=== PATIENT | female | born 1980 | race Caucasian/White ===

== ENCOUNTER → 2016-10-21 | Outpatient (CLI) | payer OTHER ==
--- NOTE | 2016-10-22 08:06 | US ---
EXAMINATION TYPE: US axilla extremity LT DATE OF EXAM: 10/21/2016 COMPARISON: NONE CLINICAL HISTORY: R22.2 Swelling, mass. Palpable in left axilla that comes and goes, can be tender 0.5cm possible lymph node seen at area of complaint versus normal axilla tissue IMPRESSION: No significant abnormalities evident. Normal-appearing lymph node present within the lef t axilla. Follow-up clinically.
== END | disposition home or self-care (01) ==
LOC: RADUSWWP 16:09
PROVIDERS: ATTEND Family Medicine
DX: R22.2 Localized swelling, mass and lump, trunk (principal)

== ENCOUNTER 2022-10-23 21:40 | Emergency (ER) | payer BC, OTHER ==
[2022-10-23 22:06] VITALS: RESP 18; TEMP 99
[2022-10-23] MEDS ORDERED: FAMOTIDINE 20 MG/2 ML VIAL IV STA (22:45)
[2022-10-23] MEDS ORDERED: ASPIRIN 81 MG PO STA (22:45)
[2022-10-23 23:34] LABS: ALT 25 U/L (4-34); AST 21 U/L (14-36); African American GFR (CKD) >90 (>60 ml/min/1.73 sqM); Albumin 4.1 g/dL (3.5-5.0); Alkaline Phosphatase 85 U/L (38-126); Anion Gap 8 mmol/L; Blood Urea Nitrogen 17 mg/dL (7-17); Calcium 9.4 mg/dL (8.4-10.2); Carbon Dioxide 29 mmol/L (22-30); Chloride 102 mmol/L (98-107); Glucose 78 mg/dL (74-99); Non-African American GFR(CKD) >90 (>60 ml/min/1.73 sqM); Potassium 3.6 mmol/L (3.5-5.1); Sodium 139 mmol/L (137-145); Total Bilirubin 0.4 mg/dL (0.2-1.3); Total Protein 7.4 g/dL (6.3-8.2)
[2022-10-23 23:39] LABS: Basophils # (A) 0.1 k/uL (0-0.2); Basophils % (A) 1 %; Eosinophils # (A) 0.2 k/uL (0-0.7); Eosinophils % (A) 2 %; HCT 37.1 % (34.0-46.0); HGB 12.7 gm/dL (11.4-16.0); Lymphocytes % (A) 24 %; MCH 29.2 pg (25.0-35.0); MCHC 34.2 g/dL (31.0-37.0); MCV 85.3 fL (80.0-100.0); Mean Platelet Volume 6.9; Monocytes # (A) 0.5 k/uL (0-1.0); Monocytes % (A) 5 %; Neutrophils # (A) 5.7 k/uL (1.3-7.7); Neutrophils % (A) 66 %; Platelet Count 295 k/uL (150-450); RBC 4.34 m/uL (3.80-5.40); RDW 13.4 % (11.5-15.5); WBC 8.6 k/uL (3.8-10.6)
[2022-10-23 23:48] LABS: INR 0.9 (<1.2); Partial Thromboplastin Time 24.4 sec (22.0-30.0); Prothrombin Time 9.8 sec (9.0-12.0)
--- NOTE | 2022-10-24 00:11 | XR ---
EXAM: XR Chest, 2 Views CLINICAL HISTORY: ITS.REASON XR Reason: chest pain TECHNIQUE: Frontal and lateral views of the chest. COMPARISON: No relevant prior studies available. FINDINGS: Lungs: No consolidation. No overt edema. Pleural space: No pleural effusion. No pneumothorax. Heart: Unremarkable. No cardiomegaly. Bones/joints: Unremarkable. No fracture or malalignment. IMPRESSION: No acute cardiopulmonary abnormality.
--- NOTE | 2022-10-24 01:26 | ED ---
Chest Pain HPI - General Chief Complaint: Chest Pain Stated Complaint: Heart Burn, Hyper Tension Time Seen by Provider: 10/23/22 22:37 Source: patient Mode of arrival: ambulatory Limitations: no limitations - History of Present Illness Initial Comments: 42-year-old female presenting with chief complaint of chest discomfort. Patient states that she was having some burning chest pain this evening. She then checked her blood pressure and noticed it was high so she came to the ER for further evaluation. She has a history of hypertension. She denies shortness of breath, palpitations, radiation of pain down the arms or up the neck., Numbness, tingling, weakness, abdominal pain, nausea, vomiting, URI-like symptoms, fever, chills. - Related Data Allergies Allergy/AdvReac Type Severity Reaction Status Date / Time No Known Allergies Allergy Verified 10/23/22 21:59 Review of Systems ROS Statement: Those systems with pertinent positive or pertinent negative responses have been documented in the HPI. ROS Other: All systems not noted in ROS Statement are negative. EKG Findings - EKG Comments: EKG Findings:: Sinus rhythm ventricular rate 60. [place] interval 171. QRS 101. QT 396. QTC 396. No ST deviation. Past Medical History Past Medical History: Hypertension History of Any Multi-Drug Resistant Organisms: None Reported Past Surgical History: No Surgical Hx Reported Past Psychological History: Depression Smoking Status: Never smoker Past Alcohol Use History: Occasional Past Drug Use History: Marijuana General Exam Limitations: no limitations General appearance: alert, in no apparent distress Head exam: Present: atraumatic, normocephalic, normal inspection Eye exam: Present: normal appearance, EOMI Neck exam: Present: normal inspection, full ROM Respiratory exam: Present: normal lung sounds bilaterally. Absent: respiratory distress, wheezes, rales, rhonchi, stridor Cardiovascular Exam: Present: regular rate, normal rhythm, normal heart sounds. Absent: systolic murmur, diastolic murmur, rubs, gallop, clicks Neurological exam: Present: alert, oriented X3, CN II-XII intact Psychiatric exam: Present: normal affect, normal mood Skin exam: Present: warm, dry, intact, normal color. Absent: rash Course Vital Signs 10/23/22 10/23/22 10/24/22 22:00 23:08 01:43 Temperature 99 F Pulse Rate 65 61 62 Respiratory 18 18 18 Rate Blood Pressure 184/124 154/99 148/90 O2 Sat by Pulse 100 97 96 Oximetry Chest Pain MDM - MDM Was pt. sent in by a medical professional or institution (, JEFFERY, HEAD CUSTODIAN, urgent care, hospital, or snf...) When possible be specific @ -No Did you speak to anyone other than the patient for history (EMS, parent, family, police, friend...)? What history was obtained from this source @ -No Did you review nursing and triage notes (agree or disagree)? Why? @ -I reviewed and agree with nursing and triage notes Were old charts reviewed (outside hosp., previous admission, EMS record, old EKG, old radiological studies, urgent care reports/EKG's, snf records)? Report findings @ -No old charts were reviewed Differential Diagnosis (chest pain, altered mental status, abdominal pain women, abdominal pain men, vaginal bleeding, weakness, fever, dyspnea, syncope, headache, dizziness, GI bleed, back pain, seizure, CVA, palpatations, mental health, musculoskeletal)? @ -MDM Differential Chest Pain: Stable Angina, Unstable Angina, STEMI, NSTEMI Aortic Dissection, Pneumothorax, Musculoskeletal, Esophageal Spasm GERD, Cholecystitis, Pancreatitis, Zoster This is not meant to be an all-inclusive list. EKG interpreted by me (3pts min.). @ -As above X-rays interpreted by me (1pt min.). @ -Chest X-ray shows no acute process CT interpreted by me (1pt min.). @ -None done U/S interpreted by me (1pt. min.). @ -None done What testing was considered but not performed or refused? (CT, X-rays, U/S, labs)? Why? @ -None What meds were considered but not given or refused? Why? @ -None Did you discuss the management of the patient with other professionals (professionals i.e. , JEFFERY, HEAD CUSTODIAN, lab, RT, psych nurse, social services director, software release engineer, teacher, control officer, bilingual case manager)? Give summary @ -No Was smoking cessation discussed for >3mins.? @ -No Was critical care preformed (if so, how long)? @ -No Were there social determinants of health that impacted care today? How? (Homelessness, low income, unemployed, alcoholism, drug addiction, transportation, low edu. Level, literacy, decrease access to med. care, [facility], rehab)? @ -No Was there de-escalation of care discussed even if they declined (Discuss DNR or withdrawal of care, Hospice)? DNR status @ -No What co-morbidities impacted this encounter? (DM, HTN, Smoking, COPD, CAD, Cancer, CVA, ARF, Chemo, Hep., AIDS, mental health diagnosis, sleep apnea, morbid obesity)? @ -None Was patient admitted / discharged? Hospital course, mention meds given and route, prescriptions, significant lab abnormalities, going to OR and other pertinent info. @ -42-year-old female presenting with chief complaint of chest discomfort that started this evening. Physical examination is unremarkable. Lab work shows no leukocytosis or anemia. Negative troponin. CMP is unremarkable. Negative chest x-ray and EKG. Heart score is 1. Patient was given aspirin and Pepcid. I discussed today's findings with the patient. On reassessment she is resting comfortably in pain has resolved. She states that she would like to be discharged home to follow up with her PCP report back to the ER with any new or worsening symptoms. I believe this is reasonable. Follow-up with PCP. Report back to ER with any new or worsening symptoms. Discussed return parameters and answered all questions. Patient conveyed verbal understanding and agreed to the plan. I discussed this case in detail with my attending Dr. Mcintosh Undiagnosed new problem with uncertain prognosis? @ -No Drug Therapy requiring intensive monitoring for toxicity (Heparin, Nitro, Insulin, Cardizem)? @ -No Were any procedures done? @ -No Diagnosis/symptom? @ -Atypical chest pain Acute, or Chronic, or Acute on Chronic? @ -Acute Uncomplicated (without systemic symptoms) or Complicated (systemic symptoms)? @ -Uncomplicated Side effects of treatment? @ -No Exacerbation, Progression, or Severe Exacerbation? @ -No Poses a threat to life or bodily function? How? (Chest pain, USA, MS, pneumonia, PE, COPD, DKA, ARF, appy, cholecystitis, CVA, Diverticulitis, Homicidal, Suicidal, threat to staff... and all critical care pts) @ -Low likelihood Disposition Clinical Impression: Atypical chest pain Disposition: HOME SELF-CARE Condition: Good Instructions (If sedation given, give patient instructions): Chest Pain (ED) Additional Instructions: Follow-up with PCP. Report back to ER with any new or worsening symptoms. Is patient prescribed a controlled substance at d/c from ED?: No Referrals: Tyler Watts MD [Primary Care Provider] - 1-2 days Time of Disposition: 01:26
[2022-10-24 01:44] VITALS: BP 148/90; PULSE 62
== END 2022-10-24 01:44 | disposition home or self-care (01) ==
LOC: EC 21:40
DX: R07.89 Other chest pain (principal); I10 Essential (primary) hypertension; F12.90 Cannabis use, unspecified, uncomplicated; Z86.59 Personal history of other mental and behavioral disorders
CPT/HCPCS: 36415; 71046; 80053; 84484; 85025; 85610; 85730; 93005; 96374; 99285

== ENCOUNTER → 2023-09-04 | Outpatient (CLI) | payer BC ==
--- NOTE | 2023-09-04 10:45 | US ---
EXAMINATION TYPE: US abdomen complete DATE OF EXAM: 09/04/2023 COMPARISON: NONE CLINICAL INDICATION: Female, 42 years old with history of R10.9 UNSPEC ABD PAIN; Abdomen pain and N/V x 1 month TECHNIQUE: Multiple sonographic images of the abdomen are obtained. FINDINGS: EXAM MEASUREMENTS: Liver Length: 14.6 cm Gallbladder Wall: 0.2 cm CBD: 0.4 cm Spleen: 11.1 cm Right Kidney: 9.6 x 5.9 x 5.1 cm Left Kidney: 10.3 x 4.7 x 4.9 cm Difficult and limited study due to patient body habitus Pancreas: visualized portions wnl, limited by overlying midline bowel gas Liver: mildly heterogeneous Gallbladder: wnl Evidence for sonographic Ibrahim's sign: no CBD: visualized portions wnl, limited by overlying bowel gas Spleen: wnl Right Kidney: wnl Left Kidney: wnl Upper IVC: wnl Abd Aorta: visualized portions wnl, limited by overlying midline bowel gas The liver is mildly heterogenous without focal lesion identified. The intrahepatic portion of the IVC and proximal abdominal aorta are within normal limits. There is no evidence of cholelithiasis. Com mon bile duct is unremarkable. The visualized portions of the pancreas are homogenous. The spleen i s unremarkable. Kidneys are symmetric and free of hydronephrosis. No renal lesions are seen. IMPRESSION: No ultrasound evidence for acute abdominal process.
== END | disposition home or self-care (01) ==
LOC: RADUSWWP 07:39
PROVIDERS: ATTEND Family Medicine
DX: R10.9 Unspecified abdominal pain (principal)
CPT/HCPCS: 76700

== ENCOUNTER 2023-10-27 12:13 | Day surgery (SDC) | payer BC ==
[2023-10-25 16:04] VITALS: BMI 47.4
[~2023-10-27 12:13] MED LIST: LIDOCAINE 1% (10MG/ML) FOR IV START INTRADERMA PRN
[2023-10-27 14:12] VITALS: TEMP 98.5
[2023-10-27] MEDS: IV FLUID CONTINUATION 1,000 ML IV ONE ×2 (14:28→16:03)
[2023-10-27] MEDS: LACTATED RINGERS 1,000 ML IV SCH (14:39)
[2023-10-27] MEDS ORDERED: PROPOFOL 10 MG/ML 20 ML VIAL IV ONE (15:51)
[2023-10-27] MEDS ORDERED: LIDOCAINE 1% INJ 10MG/ML (20 ML MDV) ONE (15:51)
--- NOTE | 2023-10-27 15:59 | P.PCN ---
Date of Procedure: 10/27/23 Procedure(s) Performed: BRIEF HISTORY: Patient is a 43-year-old, pleasant, white female scheduled for an upper endoscopy as a part evaluation of chronic diarrhea and abdominal bloating. She was noted to have positive serology for celiac disease.. PROCEDURE PERFORMED: Esophagogastroduodenoscopy biopsy. PREOPERATIVE DIAGNOSIS: Positive serology for celiac disease. IV sedation per anesthesia. PROCEDURE: After informed consent was obtained, the patient was brought into the endoscopy unit. IV sedation was administered by Anesthesia under continuous monitoring. Initially the Olympus GIF-140 video endoscope was inserted into the mouth. Esophagus intubated without any difficulty. It was gradually advanced into the stomach and duodenum and carefully examined. The bulb and the second part of the duodenum had slightly decreased duodenal folds and scalloping of the mucosa consistent with celiac disease and multiple biopsies were done from this area. The scope at this time was withdrawn to the stomach, adequately insufflated with air, and upon careful examination, mucosa of the antrum, body, cardia and the fundus appeared normal. The scope was then withdrawn into the esophagus. Small hiatal hernia noted the GE junction was located at 39 cm from the incisors. There was 1 superficial erosion in the distal esophagus consistent with LA grade B reflux esophagitis. Rest of the esophagus appeared normal and patient tolerated the procedure well. IMPRESSION: 1. Mild decreased duodenal folds and some scalloping of the duodenal mucosa suggestive of celiac disease s/p multiple biopsies. 2. Small hiatal hernia and LA grade a reflux esophagitis. RECOMMENDATIONS: The findings of this examination were discussed with the patient as well as her family. She was advised to follow-up with the biopsy results and she will be seen in the office in 2 weeks..
[2023-10-27 16:05] VITALS: RESP 16
[2023-10-27 16:24] VITALS: BP 124/71; PULSE 68
== END 2023-10-27 16:37 ==
LOC: ORWHC2ENDO 12:13
PROVIDERS: ATTEND Internal Medicine Gastroenterology
DX: R76.8 Other specified abnormal immunological findings in serum
CPT/HCPCS: 43239; 81025; 88305